=== PATIENT | female | born 1980 | race Asian ===

== ENCOUNTER 2020-12-20 13:48 | Inpatient (IN) | payer OTHER ==
[~2020-12-20] VITALS: Ht 153.9 cm; Wt 60.0 kg
[2020-12-20] MEDS ORDERED: FENTANYL PF 100 MCG/2ML IV PRN (23:00)
[2020-12-20] MEDS ORDERED: D5%-LACTATED RINGERS 1,000 ML IV SCH (23:00)
[2020-12-20] MEDS ORDERED: TERBUTALINE 1 MG/ML, 1ML IVPush PRN (23:00)
[2020-12-20] MEDS ORDERED: ONDANSETRON 2MG/ML, 2ML IVPush PRN (23:00)
[2020-12-20] MEDS ORDERED: TERBUTALINE 1 MG/ML, 1ML SQ PRN (23:00)
[2020-12-20] MEDS ORDERED: FENTANYL PF 100 MCG/2ML IVPush PRN (23:00)
[2020-12-20] MEDS ORDERED: OXYTOCIN 30U/ 0.9% NaCL 500ML 500 ML IV PRN (23:00)
[2020-12-20] MEDS: LACTATED RINGERS 1,000 ML IV SCH (23:10)
[2020-12-20] MEDS ORDERED: NEWBORN KIT ONE (23:24)
[2020-12-20] MEDS ORDERED: LIDOCAINE 1%, 20ML ONE (23:24)
[2020-12-20] MEDS ORDERED: MISOPROSTOL 200 MCG TABLET ONE (23:25)
[2020-12-20] MEDS ORDERED: PLEASE ENTER ALLERGIES MC SCH (23:30)
[2020-12-20 23:40] LABS: BASOPHILS % (AUTO) 0 % (0-1); EOSINOPHILS % (AUTO) 2 % (1-7); LYMPHOCYTES % (AUTO) 15 % (22-44); MEAN CORPUSCULAR HEMOGLOBIN 32.1 pg (27.0-34.8); MEAN CORPUSCULAR HGB CONC 34.1 g/dL (32.4-35.8); MEAN PLATELET VOLUME 8.4 fL (7.4-10.4); MONOCYTES % (AUTO) 7 % (2-9); NEUTROPHILS % (AUTO) 75 % (42-75); PLATELET COUNT 323 x10^3/uL (130-400); RED CELL DISTRIBUTION WIDTH 13.3 % (9.6-15.2)
[2020-12-21] VITALS: BP 119/56
[2020-12-21] MEDS: LACTATED RINGERS 1,000 ML IV SCH (13:01)
[2020-12-21] MEDS ORDERED: FENTANYL/BUPIV./NS/PF 250 ML EPIDCONT SCH (14:00)
[2020-12-21] MEDS ORDERED: LACTATED RINGERS 1,000 ML IVBOLUS PRN (14:00)
[2020-12-21] MEDS ORDERED: NALOXONE 0.4 MG/ML, 1ML IVPush PRN (14:00)
[2020-12-21] MEDS ORDERED: EPHEDRINE 50 MG/ML, 1ML IVPush PRN (14:00)
[2020-12-21] MEDS ORDERED: LACTATED RINGERS 1,000 ML IV SCH (14:00)
[2020-12-21] MEDS ORDERED: BUPIVACAINE 0.25% ONE (14:21)
[2020-12-21] MEDS ORDERED: FENTANYL/BUPIV./NS/PF 250 ML EPIDCONT ONE (14:21)
[2020-12-21] MEDS ORDERED: ACETAMINOPHEN 325 MG TABLET PO PRN ×2 (18:00)
[2020-12-21] MEDS ORDERED: SIMETHICONE 80 MG CHEW TAB PO PRN (18:00)
[2020-12-21] MEDS ORDERED: HYDROcodone/APAP 5/325 TABLET PO PRN (18:00)
[2020-12-21] MEDS ORDERED: OXYcodone/APAP 5/325MG TABLET PO PRN (18:00)
[2020-12-21] MEDS: OXYTOCIN 30U/ 0.9% NaCL 500ML 500 ML IV SCH (18:00)
[2020-12-21 20:00] VITALS: BP 101/50
[2020-12-21 23:43] VITALS: BP 95/59
[2020-12-22 00:49] LABS: BASOPHILS % (AUTO) 0 % (0-1); EOSINOPHILS % (AUTO) 1 % (1-7); LYMPHOCYTES % (AUTO) 12 % (22-44); MEAN CORPUSCULAR HEMOGLOBIN 32.3 pg (27.0-34.8); MEAN CORPUSCULAR HGB CONC 34.2 g/dL (32.4-35.8); MEAN PLATELET VOLUME 8.3 fL (7.4-10.4); MONOCYTES % (AUTO) 5 % (2-9); NEUTROPHILS % (AUTO) 82 % (42-75); PLATELET COUNT 262 x10^3/uL (130-400); RED BLOOD COUNT 3.32 x10^6/uL (3.82-5.3); RED CELL DISTRIBUTION WIDTH 13.6 % (9.6-15.2)
[2020-12-22] MEDS: OXYTOCIN 30U/ 0.9% NaCL 500ML 500 ML IV SCH ×2 (01:43→14:00)
[2020-12-22] MEDS: IBUPROFEN 600 MG TABLET PO PRN ×3 (03:59→19:53)
[2020-12-22 04:10] VITALS: BP 99/66
[2020-12-22 08:15] VITALS: BP 94/58
[2020-12-22] MEDS: PRENATAL VIT/IRON/FA 1 EACH TABLET PO SCH (08:25)
[2020-12-22] MEDS: DOCUSATE 100 MG CAPSULE PO PRN (08:25)
[2020-12-22] MEDS ORDERED: DIPH,PERTUSS(ACELL),TET VAC/PF NC IM-VACC ONE (12:00)
[2020-12-22 12:48] VITALS: BP 93/56
[2020-12-22 17:07] VITALS: BP 93/58
[2020-12-22 20:15] VITALS: BP 99/62
[2020-12-23 08:35] VITALS: BP 102/65
[2020-12-23] MEDS: IBUPROFEN 600 MG TABLET PO PRN (09:34)
[2020-12-23] MEDS: PRENATAL VIT/IRON/FA 1 EACH TABLET PO SCH (09:34)
[2020-12-23] MEDS: DOCUSATE 100 MG CAPSULE PO PRN (09:34)
== END 2020-12-23 14:15 | disposition home or self-care (01) | DRG 807 ==
LOC: LDIP 22:07 → 2NW 12-21 19:40
PROVIDERS: ADMIT Student in an Organized Health Care Education/Training Program; ATTEND Student in an Organized Health Care Education/Training Program
PROC: 10E0XZZ Delivery of Products of Conception, External Approach (ICD-10-PCS; principal; 2020-12-21)
PROC: 3E033VJ Introduction of Other Hormone into Peripheral Vein, Percutaneous Approach (ICD-10-PCS; 2020-12-21)
PROC: 0UQMXZZ Repair Vulva, External Approach (ICD-10-PCS; 2020-12-21)
PROC: 3E0R3BZ Introduction of Anesthetic Agent into Spinal Canal, Percutaneous Approach (ICD-10-PCS; 2020-12-21)
PROC: 00HU33Z Insertion of Infusion Device into Spinal Canal, Percutaneous Approach (ICD-10-PCS; 2020-12-21)
DX: O70.0 First degree perineal laceration during delivery (principal); Z37.0 Single live birth; Z3A.37 37 weeks gestation of pregnancy; Z20.822 Contact with and (suspected) exposure to COVID-19
CPT/HCPCS: 36415; 85025; 86592; 86900; 87635; 90715; G0378; J2590; J3010; J7120